=== PATIENT | male | born 1960 | race Caucasian/White ===

== ENCOUNTER 2024-11-16 10:00 | Emergency (ER) | payer OTHER, SELFPAY ==
[2024-11-16 10:04] VITALS: BP 152/98; PULSE 102; TEMP 37.2; O2SAT 96; BMI 25.8
--- NOTE | 2024-11-16 10:12 | ED_ITS ---
HPI - URI/Sore Throat General Chief Complaint: Upper Respiratory Infection Stated Complaint: UPPER RESPIRATORY ISSUES Time Seen by Provider: 11/16/24 10:08 Source: patient Limitations: no limitations History of Present Illness HPI Narrative: 64-year-old male presents for 2-day history of nonproductive cough and bodyaches. He was around somebody who has been sick at work. No vomiting or diarrhea. No hemoptysis but he has had a fever. Related Data Previous Rx's ?Medication ?Instructions ?Recorded ondansetron 4 mg disintegrating 4 mg PO Q6H PRN nausea and 11/16/24 tablet vomiting #20 tabs Allergies Allergy/AdvReac Type Severity Reaction Status Date / Time aspirin Allergy Severe Anaphylaxis Verified 11/16/24 10:08 Review of Systems ROS Narrative A ten point review of systems is negative except as noted above. PFSH PFSH Social History Little interest or pleasure in doing things: not at all Feeling down, depressed, or hopeless: not at all Exam Narrative Exam Narrative: Nurses note and vital signs reviewed and patient is not hypoxic. General: The patient appears well and in no apparent distress. Patient is resting comfortably on cart. Skin: Warm, dry, no pallor noted. There is no rash noted. Head: Normocephalic, atraumatic Eye: Normal conjunctiva, no drainage Ears, Nose, Mouth, and Throat: oral mucosa is moist. Nares patent. Cardiovascular: Regular Rate and Rhythm Respiratory: Patient is in no distress, no accessory muscle use, lungs are clear to auscultation, no wheezing, rales or rhonchi Back: non-tender GI: Soft and nontender Musculoskeletal: The patient has no evidence of calf tenderness, no pitting edema, symmetrical pulses noted bilaterally Neurological: A&O, normal speech Psychiatric: Cooperative Constitutional Vital Signs, click to edit/add: Last Vital Signs Temp 98.9 F 11/16/24 10:04 Pulse 102 H 11/16/24 10:04 Resp 18 11/16/24 10:04 BP 152/98 H 11/16/24 10:04 Pulse Ox 99 11/16/24 10:17 O2 Del Method Room Air 11/16/24 10:17 Course Vital Signs Vital signs: Vital Signs Temperature 98.9 F 11/16/24 10:04 Pulse Rate 102 H 11/16/24 10:04 Respiratory Rate 18 11/16/24 10:04 Blood Pressure 152/98 H 11/16/24 10:04 Pulse Oximetry 96 11/16/24 10:04 Oxygen Delivery Method Room Air 11/16/24 10:04 Temperature 98.9 F 11/16/24 10:04 Pulse Rate 102 H 11/16/24 10:04 Respiratory Rate 18 11/16/24 10:04 Blood Pressure 152/98 H 11/16/24 10:04 Pulse Oximetry 99 11/16/24 10:17 Oxygen Delivery Method Room Air 11/16/24 10:17 MDM - URI/Sore Throat MDM Narrative Medical decision making narrative: The patient has tested positive for COVID and was given a work note and he will be treated with Zofran for nausea. Treatment diagnosis and follow-up were discussed with the patient. Differential Diagnosis Differential diagnosis: Likely upper respiratory infection, viral infection, influenza and other (COVID) Lab Data Attestation: I reviewed the patient's lab results. Labs: Lab Results 11/16/24 Range/Units 10:09 Influenza Type A Ag Negative Influenza Type B Ag Negative SARS-CoV-2 Ag (CV2AG) Positive A (NEGATIVE) Discharge Plan Discharge Chief Complaint: Upper Respiratory Infection Clinical Impression: COVID-19 Patient Disposition: Home, Self-Care Time of Disposition Decision: 10:56 Condition: Good Mode of Transportation: Private Vehicle Prescriptions / Home Meds: New ondansetron 4 mg tablet,disintegrating 4 mg PO Q6H PRN (Reason: nausea and vomiting) Qty: 20 0RF Print Language: Green[place]ic Instructions: COVID-19 (Coronavirus Disease 2019) (ED), Face Coverings (Masks) and COVID-19 (ED), How to Recover from COVID-19 at Home (ED) Referrals: EPFIANIO BERGMAN [Primary Care Provider] - 1 week
[2024-11-16 10:17] VITALS: O2SAT 99
[2024-11-16 10:34] LABS: Internal Control Within Normal Limits
[2024-11-16 10:42] LABS: Influenza Virus A Antigen Negative; Influenza Virus B Antigen Negative; Internal Control Within Normal Limits; SARS-CoV-2 Ag POSITIVE (NEGATIVE)
[2024-11-16] MEDS: ONDANSETRON 4 MG RAPDIS TABLET SL (11:00)
== END 2024-11-16 11:03 | disposition home or self-care (01) ==
PROVIDERS: Emergency Provider Emergency Medicine
DX: U07.1 COVID-19 (principal)
CPT/HCPCS: 87804; 87811; 99283; Q0162